=== PATIENT | male | born 1960 | race Caucasian/White ===

== ENCOUNTER 2021-05-19 11:52 | Emergency (ER) | payer OTHER ==
[~2021-05-19] VITALS: Ht 182.9 cm; Wt 158.8 kg
[~2021-05-19 11:52] MED LIST: AMLODIPINE BESY10 MG PO; BACLOFEN10 MG PO; COMBIVENT RESPIM4 GM INH; DICLOFENAC SODI75 MG PO; HYDROCHLOROTHIA25 MG PO; LOSARTAN-HCTZ1 EAC1 PO; METOPROLOL SUCC50 MG PO
[2021-05-19] MEDS ORDERED: IRBESARTAN300 MG PO (12:17)
--- NOTE | 2021-05-19 16:13 | EKG ---
[facility] [address] [facility] [place], [place] [address] Signed Sinus bradycardia Otherwise normal ECG When compared with ECG of 19-SEP-2016 10:48, No significant change was found Confirmed by RENITA DODD MD ([id number]) on 05/19/2021 4:13:45 PM Electronically Signed By: RENITA DODD MD 05/19/21 1613 PATIENT NAME: MAINE LINDSAY RIVERA Electrocardiogram DATE OF : 62 PHYSICIAN: RENITA DODD MD REPORT #: [id number] REPORT IS CONFIDENTIAL AND NOT TO BE RELEASED WITHOUT AUTHORIZATION
[2021-05-20] MEDS ORDERED: VITAMIN D3125 MC2 PO (09:16)
[2021-05-20] MEDS ORDERED: MEN 50 PLUS MU1 EACH PO (09:17)
[2021-05-20] MEDS ORDERED: IRBESARTAN150 MG PO (13:28)
--- NOTE | 2021-06-15 10:19 | NUR ---
[facility] called concerning abnormal rhythm notification. PCP not in office today. Preliminary report page copied off of [employer] site and faxed to PCP.
== END 2021-05-19 15:25 | disposition home or self-care (01) ==
LOC: ED 11:52
DX: I95.9 Hypotension, unspecified (principal); I10 Essential (primary) hypertension; Z79.899 Other long term (current) drug therapy
CPT/HCPCS: 80053; 83735; 84484; 85025; 93005; 93010; 99284-25

== ENCOUNTER 2021-05-19 16:41 | Observation (INO) | payer OTHER ==
[~2021-05-19] VITALS: Ht 182.9 cm; Wt 141.9 kg
[~2021-05-19 16:41] MED LIST changes: +IRBESARTAN300 MG PO
--- OUTSIDE RECORDS SUMMARY | 2021-05-19 16:44 | XMS ---
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 Charli has no Care Guidelines for this patient. Jim VISIT COUNT (12 MO.) [facility] TOTAL 2 NOTE: Visits indicate total known visits. ED/C VISIT TRACKING (12 MO.) 05/19/2021 16:[address] [facility] [place] [place] TYPE: Emergency COMPLAINT: - WEAKNESS 05/19/2021 11:53 CLARISSA Campos [place] TYPE: Emergency COMPLAINT: - UNCONSCIOUSNESS INPATIENT VISIT TRACKING (12 MO.) No inpatient visits to display in this time frame [email or web address]
--- NOTE | 2021-05-19 21:20 | NUR ---
2109 - ARRIVED TO FLOOR VIA STRETCHER FROM ED. AMBULATED TO BED, NO C/O LIGHTHEADNESS. COOPERATIVE
--- NOTE | 2021-05-19 23:00 | NUR ---
AWAKES EASILY, NO C/O CP, TELE#[address], ELOISA AT 48 WHEN STANDING UP, NO C/O LIGHTHEADNESS. WAS STANDING EDGE OF BED, USED URINAL, NO C/O LIGHTHEADNESS
--- NOTE | 2021-05-20 03:19 | NUR ---
CALL LIGHT ANSWERED. [facility] AND [facility] BOX PROVIDED PER PATIENT'S REQUEST.
--- NOTE | 2021-05-20 04:07 | NUR ---
RESTING, EYES CLOSED, AWAKES EASILY, IVF INFUSING W/O PROBLEMS, HOLSTERMONITOR AND TELE#6 IN PLAC SR AT 55, NO DISTRESS. CALL LIGHT AND FLUIDS AT BEDSIDE
--- NOTE | 2021-05-20 05:49 | NUR ---
Pt awakes easily, on room air, no c/o CP or lightheadness when standing up. wearing a L chest holster monitor applied yesterday at our RT dept as an outpt. Tele#[address], SB at 56 at this time, has dropped down to 45bpm. asynptomatic. this has happed when pt stand up to edge of bed to urinate. denies lightheadness. Has voided QS, IVF infusing w/o problems, no emesis, tolerated diet well. generalized edema present due to obesity. Pt has dropped 80+# since Supper Bowl Monday as he went on the Rochelle diet and has made lifestyle changes, stated. turns and repositions self in bed. tolerating fluids werll, alert, oriented, pleasant. Fresg fluids and call light at bedside, on room air in place
--- NOTE | 2021-05-20 06:11 | NUR ---
pt dislodged IV while turning, site intact. tubing changed. coop, linen and gown changed. ivf infusing w/o problems
--- NOTE | 2021-05-20 07:28 | NUR ---
REPORT RECEIVED FROM ESTEFANÍA FLORES. PT RESTING IN BED. PT REPORTS 0/10 PAIN AT THIS TIME. PT DENIES DIZZINESS AT THIS TIME. NORMAL SINUS RHYTHEM NOTED ON MONITOR WITH HEART RATE OF 77. PT DENIES ADDITIONAL REQUESTS OR COMPLAINTS. CALL LIGHT WITHIN REACH. BED RAILS UP.
--- NOTE | 2021-05-20 08:47 | NUR ---
PATIENT IS UP IN BED VISITING WITH FAMILY MEMBER. I SAT BREAKFAST FOR PATIENT. HE DOES NOT NEED ANYTHING AT THIS TIME. CALL LIGHT IN REACH.
--- NOTE | 2021-05-20 09:10 | NUR ---
MORNING ASSESSMENT AND MEDICATION DUE. THIS RN TO ROOM. PT REMAINS IN BED, FAMILY AT BEDSIDE. VERNA, PHARMACIST, AT BEDSIDE TALKING WITH PT ABOUT HIS MEDICATIONS. PT DENIES PAIN AND NAUSEA. ORTHOSTATIC VITAL SIGNS TAKEN WITH PT LYING, SITTING, AND STANDING FOR 1 AND 3 MINUTES. HEART RATE DROPS FROM 61 TO 58, BLOOD PRESSURE REMAINS STABLE. PT DENIES DIZZINESS WHEN STANDING AND STATES "I FEEL PRETTY GOOD TODAY." PT OREINTED TO ALL, PT REPORTS NUMBNESS ADN TINGLING IN HIS LEFT LEG BELOW THE KNEE "EVERY SINCE MY KNEE SURGERY." PLANTAR AND DORSI FLEXION WNL. MOTHER AND SENSTATIONS OTHERWISE WNL. LUNG SOUNDS CLEAR. TELE #6 SHOWS SINUS RYTHEM, BRADYCARDIA IN THE 50'S WITH STANDING AND AMBULATION. PT DENIES CONSTIPATION. STAND BY ASSIST UP TO CHAIR. PT EATING BREAKFAST, WILL AMBULATE IN NINO AFTER BREAKFAST. NO ADDITIONAL REQUESTS OR COMPLAINTS. CALL LIGHT WITHIN REACH.
[2021-05-20] MEDS ORDERED: VITAMIN D3125 MC2 PO (09:16)
[2021-05-20] MEDS ORDERED: MEN 50 PLUS MU1 EACH PO (09:17)
--- NOTE | 2021-05-20 09:50 | NUR ---
INTO PATIENT ROOM, PATIENT SITTING UP IN CHAIR. PATIENT STATES HE LIVES AT HOME WITH HIS . 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 PRIOR TO THIS HOSPITALIZATION PATIENT STATES HE DID NOT REQUIRE ANY DME OR ASSISTANCE WITH MOBILITY. PATIENT RECENTLY HAS BEEN INTENTIONALLY LOSING WWIGHT AND HAS LOST A TOTAL OF 80 LBS. PATIENT WISHES TO DISCHARGE HOME WITH WHEN STABLE AND FEELS THIS IS A SAFE PLAN. PATIENT IS ASKING WHEN HE WILL BE ABLE TO GO HOME. ADVISED PATIENT THAT DR. DODD WILL BE AROUND TO ASSESS PATIENT YUE. NOT FURTHER DISCHARGE NEEDS FOR THE PATIENT AT THIS TIME, WILL CONTINUE TO FOLLOW UP DURING THE PATIENTS VISIT.
--- NOTE | 2021-05-20 10:05 | NUR ---
PT FINISHED WITH BREAKFAST. THIS RN TO ROOM. PT UP TO AMBULATE IN NINO X2 LAPS, WITH STAND BY ASSIST. PT STEADY ON FEET WHILE AMBULATING. PT DENIES DIZZINESS OR LIGHTHEADDENESS.. HEART RATE REMAINS IN 60-70'S WITH AMBUALTE PER TELEMETRY MONITORING. VITAL SIGNS STABLE AFTER AMBULATION, HR = 64, BP = 136/71. PT BACK TO ROOM AND UP TO CHAIR. NO ADDITIONAL REQUESTS OR COMPLAINTS. CALL LIGHT WITHIN REACH.
--- NOTE | 2021-05-20 10:37 | NUR ---
PT CALL LIGHT ON. PT REQUESTS ASSISTANCE UP TO RESTROOM. STAND BY ASSIST UP TO RESTROOM. PT HAS BOWEL MOVEMENT WITH OUT ISSUE. PT PERFORMES SELF PAUL CARE. STAND BY ASSIST BACK TO CHAIR. NO ADDITIONAL REQUESTS OR COMPLAINTS AT THIS TIME. CALL LIGHT WITHIN REACH.
--- NOTE | 2021-05-20 11:30 | NUR ---
ORTHOSTATIC VITAL SIGNS DUE. THIS RN TO ROOM. PT UP TO CHAIR VISITNG WITH PT. PT REPORTS A HEADACHE AT 3-4/10 ON RIGHT SIDE, FRONTAL LOBE. STAND BY ASSIST BACK TO BED. ORTHOSTATIC VITAL SIGNS TAKEN. BLOOD PRESSURE DROPS WITH STANDING 1 MINUTE BLOOD PRESSURE ADJUSTS AFTER 3 MINUTES. HEART RATE REMAINS IN THE 50'S. MEDICATION GIVEN FOR HEADACHE. PT UP TO AMBULATE IN NINO X2 LAPS WITH STAND BY ASSIST. PT DENIES DIZZINESS WITH AMBULATION. HEART RATE IN 60'S BY TELEMETRY MONITORING DURING AMBULATION. PT RETURNED TO ROOM. UP TO CHAIR FOR LUNCH. NO ADDITIONAL REQUESTS OR COMPLAINTS. CALL LIGHT WITHIN REACH.
--- NOTE | 2021-05-20 13:15 | NUR ---
AFTERNOON ASSESSMENT DUE. THIS RN TO ROOM TO CHECK ON PT. PT BACK TO BED WITH STAND BY ASSIST. PT REPORTS HE WOULD LIKE TO REST FOR A LITTLE WHILE. PT REPORTS 1/10 HEADACHE AT THIS TIME, STATING "IT'S ALMOST GONE." PT DENIES NEED FOR ADDITIONAL PAIN MEDICATION AT THIS TIME. PT CONTINUES TO REPORTS NUMBNESS AND TINGLING TO LEFT LEG BELOW THE KNEE, PT ALSO STATES HIS CALF "FEELS COOLER THAN MY OTHER LEG." LUNG SOUNDS CLEAR. HEART RATE 58 AT THIS TIME BY CAUSTIC OPERATOR AND PULSE OX. PT DENIES DIZZINESS AND LIGHTHEADEDNESS. PTS HOME BLOOD PRESSURE MONITOR CROSS CHECKED WITH HOSPITAL BLOOD PRESSURESS THIS MORNING WITH ORTHOSTATIC VITAL SIGNS. BLOOD PRESSURES ON HOME MONITOR 10POINTS HIGHER SYSTOLICALLY COMPARED TO HOSPITAL READINGS. MD AWARE. MD TO BEDSIDE TO SPEAK WITH PT. PT VERBALIZES UNDERSTANDING IN DETAIL WITH REPEAT BACK OF MD INSTRUCTIONS AND PLAN OF CARE. PT ANTICIPATING DISCHARGE THIS AFTERNOON. PT DENIES ADDIITONAL REQUESTS OR COMPLAINTS. CALL LIGHT WITHIN REACH. PTS DAUGHTER AT BEDSIDE.
[2021-05-20] MEDS ORDERED: IRBESARTAN150 MG PO (13:28)
--- NOTE | 2021-05-20 13:43 | NUR ---
PT READY FOR DISCHARGE. IV DC'D PER PROTOCOL, GAUZE AND COBAN APPLIED. VITAL SIGNS STABLE. HEART RATE 60'S AT THIS TIME. TELE DC'D. PT DRESSES SELF WITH STAND BY ASSIST. DISCHARGE INSTRUCTIONS REVEIWED WITH PT AND PTS DAUGHTER. PT AND DAUGHTER VERBALIZE UNDERSTANDING OF MEDICATION CHANGES, INSTRUCTIONS, FOLLOW UP AND WHEN TO CALL THE DOCTOR. PHARMACIST, WILLIE, TO BEDSIDE TO REVIEW MEDICATIONS IN DETAIL WITH PT. PT STATES ALL HIS QUESTIONS HAVE BEEN ANSWERED. PHONOGRAPH MECHANIC TO BEDSIDE TO TALK WITH PT ABOUT HIS WEIGHT LOSS. PT VERBALIZES UNDERSTANDING OF HIS PLAN OF CARE. PT AWAITING ARRIVAL OF HIS TO TAKE HIM HOME. CALL LIGHT WITHIN REACH. NO ADDITIONAL REQUESTS OR CONCERNS AT THIS TIME.
--- NOTE | 2021-05-20 14:17 | NUR ---
PATIENT ADMITTED FOR HIGH RISK OF MALNUTRITION DUE TO 33 LBS OR MORE WEIGHT LOSS PER ADMISSION ASSESSMENT. VISITED PATIENT AT BEDSIDE. PATIENT WAS GETTING READY TO LEAVE THE HOSPITAL. HE DISCUSSED THAT HIS WEIGHT LOSS IS INTENTIONAL AND HAS ACHIEVED THIS BY BEING ON THE OPTAVIA DIET SINCE EARLY NOVEMBER OF 2020. ACCORDING TO THE PATIENT, HE CONSUMES LESS CARBOHYDRATES AND ADDED SUGARS. HE STATED HE LOST 80 LBS SINCE HE HAS IMPLEMENTED LIFESTYLE CHANGES. DUE TO HIS WEIGHT LOSS, SOME OF HIS MEDICATION DOSAGES HAVE BEEN READJUSTED, WHILE OTHERS HAVE BEEN REMOVED FROM HIS REGIME. HIS HAS ALSO BEEN DOING OPTAVIA AND ALSO LOST WEIGHT. HE IS HAPPY WITH HIS WEIGHT LOSS THUS FAR AND CURRENTLY IS MAINTAINING HIS WEIGHT, BUT PLANS TO CONTINUE WHAT HE IS DOING. COMMENDED PATIENT ON HIS SUCCESS AND TOLD HIM TO KEEP IT UP.
== END 2021-05-20 14:35 | disposition home or self-care (01) ==
LOC: ED 16:41 → MS 16:43
PROVIDERS: ADMIT Internal Medicine; ATTEND Internal Medicine
DX: I95.1 Orthostatic hypotension (principal); R00.1 Bradycardia, unspecified; I10 Essential (primary) hypertension; E66.01 Morbid (severe) obesity due to excess calories; Z68.41 Body mass index [BMI] 40.0-44.9, adult; Z20.822 Contact with and (suspected) exposure to COVID-19
CPT/HCPCS: 80053; 81001; 83735; 84484; 85025; 93306; 96372; 99285-25; C9803; G0378; J1650; J7030; J7121; U0003

== ENCOUNTER 2022-12-21 12:51 | Emergency (ER) | payer OTHER ==
[~2022-12-21] VITALS: Ht 182.9 cm; Wt 141.5 kg
[~2022-12-21 12:51] MED LIST changes: +IRBESARTAN150 MG PO; +MEN 50 PLUS MU1 EACH PO; +VITAMIN D3125 MC2 PO
--- OUTSIDE RECORDS SUMMARY | 2022-12-21 12:54 | XMS ---
PreManage Notification: MAINE LINDSAY Security Hospitality Housekeeper Events No recent Security Events currently on file CRITERIA MET - [facility] CARE PROVIDERS STACEYHEIDY [facility] 05/20/2021-Current PHONE: Unknown Charli has no Care Guidelines for this patient. Care History Medical/Surgical 05/20/2021 [facility] - Patient is currently established with [facility]. If patient is seen in the ED during business hours. Please contact CHWs at [facility]. Care Recommendation: If this patient has had 5 or more Emergency Department visits in the last 12 months.\T\nbsp; Patient will require education on the scope and purpose of the ED as an acute care provider not a Primary Care Provider and should not be utilized for chronic conditions.\T\nbsp; These are guidelines and the provider should exercise clinical judgment when providing care. E.D. VISIT COUNT (12 MO.) 1 [facility] TOTAL 1 NOTE: Visits indicate total known visits. ED/UCC VISIT TRACKING (12 MO.) 12/21/2022 12:51 CLARISSA Daily TYPE: Emergency COMPLAINT: - BACK PAIN/INJURY INPATIENT VISIT TRACKING (12 MO.) 12/16/2022 05:40 Se ALLEN TYPE: Medical Surgical COMPLAINT: - LAMINECTOMY-DISCECTOMY/DECOMPRESSION M48.062 [facility] [id number] DIAGNOSES: 0. Spinal stenosis, lumbar region with neurogenic claudication 1. Spinal stenosis, lumbar region with neurogenic claudication 2. Body mass index [BMI] 50.0-59.9, adult 3. Other obesity 4. Essential (primary) hypertension 5. Repeated falls 6. Depression, unspecified 7. Unspecified atrial fibrillation 8. Presence of unspecified artificial knee joint 9. Presence of cardiac pacemaker 10. Arthrodesis status 11. custodial (current) use of anticoagulants 12. Other termite control representative (current) drug therapy 13. Other specified postprocedural states 11/16/2022 05:40 Se Martini [place] TYPE: Medical Surgical COMPLAINT: - LUMBAR FUSION - POSTERIOR [id number],M48.02 DIAGNOSES: 0. Weakness 1. Spinal stenosis, cervical region 2. Other specified diseases of spinal cord 3. Spinal stenosis, lumbar region with neurogenic claudication 4. Spinal stenosis, thoracolumbar region 5. Spondylolisthesis, lumbar region 6. Cervical root disorders, not elsewhere classified 7. Unspecified abnormalities of gait and mobility 8. Presence of artificial knee joint, bilateral 9. intermediate designer (current) use of anticoagulants 10. Other intermediate (current) drug therapy 11. Arthrodesis status 12. History of falling [email or web address]
[2022-12-21] MEDS ORDERED: ELIQUIS5 MG PO (13:30)
[2022-12-21] MEDS ORDERED: METHOCARBAMOL750 MG PO (13:30)
[2022-12-21] MEDS ORDERED: PAROXETINE HCL20 MG PO (13:30)
[2022-12-21] MEDS ORDERED: METOPROLOL TART25 MG PO (13:31)
[2022-12-21] MEDS ORDERED: OXYCODONE HCL10 MG PO (13:31)
== END 2022-12-21 21:16 | disposition short-term general hospital (02) ==
LOC: ED 12:51
DX: G89.18 Other acute postprocedural pain (principal); M54.50 Low back pain, unspecified; I10 Essential (primary) hypertension; Z79.899 Other long term (current) drug therapy; Z79.01 Long term (current) use of anticoagulants
CPT/HCPCS: 96374; 99284-25; J1170